=== PATIENT | female | born 1990 | race Caucasian/White ===

== ENCOUNTER 2017-03-31 15:24 | Emergency (ER) | payer SELFPAY ==
[~2017-03-31] VITALS: Ht 167.6 cm; Wt 86.0 kg
[~2017-03-31 15:24] MED LIST: DICY1TAB26 PO; Z.0.NO CURRENT MEDS
[2017-03-31 15:27] VITALS: BP 113/73; PULSE 79; RESP 16; TEMP 98.3; O2SAT 100
[2017-03-31] MEDS ORDERED: DOXYCYCLINE HYCLATE 100 MG CAP PO ONE (15:45)
[2017-03-31] MEDS ORDERED: LIDOCAINE 1%/EPINEPHrine 1:100,000 SOLN 20 ML VIAL INFIL ONE (15:45)
[2017-03-31] MEDS ORDERED: LIDOCAINE 1%/EPINEPHrine 1:100,000 SOLN 30 ML VIAL INFIL ONE (15:45)
[2017-03-31] MEDS ORDERED: TETANUS/DIPHTHERIA TOXOID ADULT 0.5 ML VIAL IM ONE (15:45)
[2017-03-31] MEDS ORDERED: DOXY100C PO (16:34)
--- NOTE | 2017-03-31 16:35 | PD ---
HPI Chief Complaint: Foreign Body Time Seen by Provider: 15:30 Travel History International Travel<30 days: No Contact w/Intl Traveler<30days: No Traveled to known affect area: No History of Present Illness HPI 26-year-old female presents to the emergency room for evaluation of foreign body to the right face. Patient was saltwater fishing when a treble fishing hook flung back and stuck in her right cheek. She slapped her face thinking that a bug was attacking her and sustained a cut to her hand as well. Patient came straight from the water to the emergency room. She has not washed it or taken anything for her symptoms. Reports moderate pain. She denies chronic medical conditions or daily medications. Unknown last tetanus. [facility] Past Medical History Medical History: Denies Significant Hx Diminished Hearing: No Immunizations Current: Yes Tetanus Vaccination: > 5 Years Influenza Vaccination: No ?: Not LMP: 03/18/17 : 1 : 1 Past Surgical History Gynecologic Surgery: Yes () Social History Alcohol Use: Yes (OCCASIONAL) Tobacco Use: No Substance Use: No Allergies-Medications (Allergen,Severity, Reaction): Uncoded Allergies: excedrin (Allergy, Intermediate, hives, 03/31/17) Reported Meds & Prescriptions Reported Meds & Active Scripts Active Doxycycline Hyclate 100 Mg Cap 100 Mg PO BID Review of Systems Except as stated in HPI: all other systems reviewed are Neg Physical Exam Narrative GENERAL: Well-nourished, well-developed female in no acute distress. Afebrile. Ambulatory. SKIN: Focused skin assessment warm/dry. There is a treble hook sticking out of the right face with 2 of the 3 hooks embedded in the skin. One of the hooks is superficial; the other is deep. No surrounding erythema. HEAD: Normocephalic. EYES: No scleral icterus. No injection or drainage. NECK: Supple, trachea midline. No JVD or lymphadenopathy. CARDIOVASCULAR: Regular rate and rhythm without murmurs, gallops, or rubs. RESPIRATORY: Breath sounds equal bilaterally. No accessory muscle use. PSYCHIATRIC: No delusional thought processes. No hallucinations. Data Data Last Documented VS Vital Signs Date Time Temp Pulse Resp B/P Pulse Ox O2 Delivery O2 Flow Rate FiO2 03/31/17 15:27 98.3 79 16 113/73 100 Orders Lidocai-Epi 1%-1:100,000 Inj (Xylocaine- (03/31/17 15:45) Tetanus/Diphtheria Tox Adult (Tetanus/Di (03/31/17 15:45) Lidocai-Epi 1%-1:100,000 Inj (Xylocaine- (03/31/17 15:45) Doxycycline (Vibramycin) (03/31/17 15:45) MDM Medical Decision Making Medical Screen Exam Complete: Yes Emergency Medical Condition: Yes Medical Record Reviewed: Yes Differential Diagnosis Foreign body versus cellulitis versus abscess Narrative Course 26-year-old female presents to the emergency room for evaluation of a treble hook in her right cheek that occurred just prior to arrival. Patient was [employer] fishing. Tetanus was updated and wound was thoroughly cleansed. Foreign body was removed with some difficulty but no complications. Patient was given her first dose of doxycycline in the emergency room. She'll be discharged with prescription for the same and told to follow up with her primary care physician or return for worsening symptoms. She understands and agrees to plan. Procedures Procedure Narrative Foreign body removal: Patient was made aware of risks and benefits including scarring in the face and wished to proceed. The area was prepped with Betadine. A subcutaneous wheal of 1% lidocaine with epinephrine with a total number 3 mL was used to anesthetize the area properly. A number 11 scalpel was used to make a 0.5 cm horizontal incision across the insertion of the foreign body. Hemostats were used to manipulate the barbed hook to poke through the skin. A second 0.5 cm incision was made at the point that the loli poked through and the foreign body was pulled through. The area was cleansed and a dressing with triple antibiotic ointment was applied. Patient tolerated the procedure well. Diagnosis Primary Impression: Acute foreign body of cheek Qualified Code: S00.85XA - Acute foreign body of cheek, initial encounter Referrals: Primary Care Physician Patient Instructions: General Instructions, Soft Tissue Foreign Body (ED) Additional Instructions: Rest and drink plenty of fluids. Take doxycycline as directed, until gone. Keep wounds clean and dry. Apply triple antibiotic ointment twice daily Follow-up with a primary care physician. Return to the emergency room for worsening symptoms. Med/Other Pt SpecificInfo: Prescription(s) given Scripts Doxycycline Hyclate 100 Mg Pvh506 Mg PO BID #14 CAP Ref 0 Prov:Reddy Sandoval MD 03/31/17 Disposition: 01 DISCHARGE HOME Condition: Stable Minna Rangel Mar 31, 2017 16:35
== END 2017-03-31 16:48 | disposition home or self-care (01) ==
LOC: PHEFT 15:24
DX: S00.85XA Superficial foreign body of other part of head, initial encounter (principal); Z23 Encounter for immunization; W45.8XXA Other foreign body or object entering through skin, initial encounter; Y93.89 Activity, other specified; Y92.9 Unspecified place or not applicable; Y99.8 Other external cause status
CPT/HCPCS: 10120; 90471; 90714